=== PATIENT | female | born 1995 | race African-American/Black ===

== ENCOUNTER 2023-10-20 15:17 | Emergency (ER) | payer SELFPAY ==
[~2023-10-20] VITALS: Ht 177.8 cm; Wt 70.0 kg
[2023-10-20 15:28] VITALS: TEMP 98.4; O2SAT 99
[2023-10-20] MEDS: LORAZEPAM 2MG/ML INJ IM ONE (16:45)
[2023-10-20 17:04] VITALS: BP 114/72; PULSE 89; RESP 16
== END 2023-10-20 17:06 | disposition home or self-care (01) ==
LOC: ER 15:17
DX: F41.9 Anxiety disorder, unspecified (principal); K92.0 Hematemesis
CPT/HCPCS: 93005; 99283; Z7610 ×2; J2060